=== PATIENT | male | born 1955 | race Asian ===

== ENCOUNTER 2019-05-30 10:43 | Emergency (ER) | payer OTHER ==
[~2019-05-30] VITALS: Ht 160 cm; Wt 68.2 kg
[2019-05-30 11:57] VITALS: BP 101/62
[2019-05-30] MEDS ORDERED: MAGN30TA2 PO (12:07)
[2019-05-30] MEDS ORDERED: ASPI81 PO (12:07)
[2019-05-30] MEDS ORDERED: GLIP10 PO (12:07)
[2019-05-30] MEDS ORDERED: METF-960 PO (12:07)
[2019-05-30] MEDS ORDERED: LISI-662 PO (12:07)
[2019-05-30] MEDS ORDERED: ATOR40TA28 PO (12:07)
[2019-05-30 12:12] LABS: GLUCOSE,POINT OF CARE 174 MG/DL (70-110)
== END 2019-05-30 12:55 | disposition left against medical advice (07) ==
LOC: EMS 10:46
DX: R05 Cough (principal); Z53.21 Procedure and treatment not carried out due to patient leaving prior to being seen by health care provider